=== PATIENT | female | born 1980 | race Caucasian/White ===

== ENCOUNTER 2016-12-23 21:33 | Inpatient (IN) | payer OTHER ==
[~2016-12-23] VITALS: Ht 170.2 cm; Wt 61.3 kg
[2016-12-23 22:14] LABS: POINT-OF-CARE METER ID UU13113800
[2016-12-23 22:41] LABS: HEMATOCRIT 38.9 % (36.0-46.0); MCH 28.1 PG (29.0-34.0); MCHC 31.9 G/DL (30.0-36.0); MCV 88.2 FL (83-99); MEAN PLAT.VOLUME 11.1 uM^3 (9.5-12.4); PLATELET COUNT 225 K/uL (156-360); RBC DIS.WIDTH-CV 14.3 % (11.8-14.6); RBC DIS.WIDTH-SD 46.5 % (39-53); RED BLOOD COUNT 4.41 M/uL (3.80-5.20)
[2016-12-23 22:51] LABS: CHLORIDE 105 mEq/L (99-109); POTASSIUM 3.8 mEq/L (3.7-5.4); SODIUM 136 mEq/L (136-147)
[2016-12-23 22:53] LABS: GLUCOSE 135 mg/dL (70-99)
[2016-12-23 22:54] LABS: ANION GAP 9 MEQ/L (2-14)
[2016-12-23 22:55] LABS: TOTAL BILIRUBIN 0.7 mg/dL (0.0-1.0)
[2016-12-23 22:57] LABS: ALKALINE PHOSPHATASE 57 IU/L (3-129); GFR ESTIMATE (CALCULATED) > 59 mL/min/
[2016-12-23 22:58] LABS: UREA NITROGEN (BUN) 14 mg/dL (9-23)
[2016-12-23 23:00] LABS: LIPASE 6 U/L (1.0-51.0)
[2016-12-23 23:09] LABS: QUANTITATIVE HCG < 4.0 MIU/ML
[2016-12-24] MEDS ORDERED: METHADONE 22 MG/1 ML PO (01:52)
[2016-12-24 02:50] LABS: BASE EXCESS 1.5 mEq/L (-3 to +3); BICARBONATE 25.9 mEq/L (22-26); CARBOXY HGB 3.3 % (0-5); METHEMOGLOBIN 1.1 % (0-1.5); PCO2 39 mm Hg (35-45); PO2 69 mm Hg (80-100); SITE LB; pH 7.43 (7.35-7.45)
[2016-12-24 02:51] LABS: COMMENTS - BLOOD GASES C+; MODE RA; TOTAL RESP RATE 20 resp/min
[2016-12-24 05:45] LABS: BILIRUBIN NEGATIVE; BLOOD NEGATIVE; COLOR YELLOW ((YELLOW)); GLUCOSE (STRIP) NEGATIVE; KETONES 5; LEUKOCYTES NEGATIVE; NITRITE NEGATIVE; PROTEIN (STRIP) NEGATIVE; SPECIFIC GRAVITY 1.036 (1.000-1.030); UROBILINOGEN 0.2 MG/DL (0.2-1.0)
[2016-12-24 05:51] LABS: ADD MIUA? NO; UCUL ADDED? NO
[2016-12-24 07:21] VITALS: BP 97/52
[2016-12-24 08:12] LABS: INTERNAL CONTROL VALID? YES
[2016-12-24 11:07] LABS: EOSINOPHIL (%) 1.6 % (0-5); EOSINOPHIL COUNT 0.2 K/uL (0-0.3); HEMATOCRIT 35.5 % (36.0-46.0); IMMATURE GRANULOCYTE (%) 0.5 % (0.0-0.7); IMMATURE GRANULOCYTE COUNT 0.1 K/uL; INSTRUMENT ABS NEUTROPHIL CT 8.5 K/uL; LYMPHOCYTE COUNT 2.1 K/uL (1.0-2.8); MCH 28.6 PG (29.0-34.0); MCHC 32.4 G/DL (30.0-36.0); MCV 88.3 FL (83-99); MEAN PLAT.VOLUME 11.4 uM^3 (9.5-12.4); MONOCYTE (%) 5.4 % (3-12); MONOCYTE COUNT 0.6 K/uL (0-0.8); NEUTROPHIL (%) 73.7 % (45-76); NEUTROPHIL COUNT 8.5 K/uL (1.8-6.4); PLATELET COUNT 235 K/uL (156-360); RBC DIS.WIDTH-CV 14.5 % (11.8-14.6); RBC DIS.WIDTH-SD 46.6 % (39-53); RED BLOOD COUNT 4.02 M/uL (3.80-5.20); WHITE BLOOD COUNT 11.6 K/uL (4.1-10.2)
[2016-12-24 11:21] LABS: ANION GAP 8 MEQ/L (2-14); CHLORIDE 102 MEQ/L (99-109); GFR ESTIMATE (CALCULATED) > 59 mL/min/; POTASSIUM 3.8 MEQ/L (3.7-5.4); SAMPLE HEMOLYSIS CHECK 0; SAMPLE ICTERIC CHECK 0; SAMPLE LIPEMIA CHECK 0; SODIUM 138 MEQ/L (136-147); UREA NITROGEN (BUN) 10 mg/dL (9-23)
[2016-12-24 11:27] LABS: GLUCOSE 77 mg/dL (70-99)
[2016-12-25] VITALS: BP 91/55
[2016-12-25 02:41] LABS: INFLUENZA A VIRAL ANTIGEN NEGATIVE; INFLUENZA B VIRAL ANTIGEN NEGATIVE
[2016-12-25 07:43] VITALS: BP 101/58
[2016-12-25 07:53] LABS: ANION GAP 8 MEQ/L (2-14); CHLORIDE 103 MEQ/L (99-109); GFR ESTIMATE (CALCULATED) > 59 mL/min/; GLUCOSE 77 mg/dL (70-99); POTASSIUM 4.1 MEQ/L (3.7-5.4); SAMPLE HEMOLYSIS CHECK 0; SAMPLE ICTERIC CHECK 0; SAMPLE LIPEMIA CHECK 0; SODIUM 140 MEQ/L (136-147); UREA NITROGEN (BUN) 11 mg/dL (9-23)
[2016-12-25 08:08] LABS: BASOPHIL COUNT 0.1 K/uL (0-0.1); EOSINOPHIL (%) 7.8 % (0-5); EOSINOPHIL COUNT 0.5 K/uL (0-0.3); HEMATOCRIT 35.5 % (36.0-46.0); IMMATURE GRANULOCYTE (%) 0.5 % (0.0-0.7); INSTRUMENT ABS NEUTROPHIL CT 2.4 K/uL; LYMPHOCYTE COUNT 3.2 K/uL (1.0-2.8); MCH 29.1 PG (29.0-34.0); MCHC 32.1 G/DL (30.0-36.0); MCV 90.6 FL (83-99); MONOCYTE (%) 5.9 % (3-12); MONOCYTE COUNT 0.4 K/uL (0-0.8); NEUTROPHIL (%) 36.6 % (45-76); NEUTROPHIL COUNT 2.4 K/uL (1.8-6.4); PLATELET COUNT 200 K/uL (156-360); RBC DIS.WIDTH-CV 14.3 % (11.8-14.6); RBC DIS.WIDTH-SD 47.4 % (39-53); RED BLOOD COUNT 3.92 M/uL (3.80-5.20)
[2016-12-25 08:22] LABS: WHITE BLOOD COUNT 6.6 K/uL (4.1-10.2)
[2016-12-25 08:23] LABS: INTERNAL CONTROL VALID? YES
[2016-12-25 10:03] LABS: HIV INDEX 0.08; HIV-1/2 AB/AG COMBO Nonreactive
[2016-12-25 15:13] VITALS: BP 113/67
[2016-12-26 00:16] VITALS: BP 100/52
[2016-12-26 07:49] VITALS: BP 119/80
[2016-12-26 08:38] LABS: MCH 29.4 PG (29.0-34.0); MCHC 32.5 G/DL (30.0-36.0); MCV 90.5 FL (83-99); MEAN PLAT.VOLUME 11.2 uM^3 (9.5-12.4); PLATELET COUNT 200 K/uL (156-360); RBC DIS.WIDTH-CV 14.2 % (11.8-14.6); RBC DIS.WIDTH-SD 46.8 % (39-53); RED BLOOD COUNT 3.98 M/uL (3.80-5.20); WHITE BLOOD COUNT 6.5 K/uL (4.1-10.2)
[2016-12-26 09:07] LABS: ANION GAP 9 MEQ/L (2-14); CHLORIDE 103 MEQ/L (99-109); GFR ESTIMATE (CALCULATED) > 59 mL/min/; GLUCOSE 88 mg/dL (70-99); MAGNESIUM 1.9 mg/dl (1.3-2.7); POTASSIUM 3.5 MEQ/L (3.7-5.4); SAMPLE HEMOLYSIS CHECK 0; SAMPLE ICTERIC CHECK 0; SAMPLE LIPEMIA CHECK 0; SODIUM 141 MEQ/L (136-147); UREA NITROGEN (BUN) 9 mg/dL (9-23)
[2016-12-26] MEDS ORDERED: NICOTINE PATCH1 EAC2 TD (13:33)
[2016-12-26] MEDS ORDERED: LEVOFLOXACIN750 MG PO (13:33)
[2016-12-26] MEDS ORDERED: MUCINEX600 MG PO (13:33)
[2016-12-26] MEDS ORDERED: PREDNISONE5 M1 PO (13:33)
[2016-12-26] MEDS ORDERED: VENTOLIN HFA18 GM IH (13:33)
[2016-12-26] MEDS ORDERED: HYDROXYZINE PAM50 MG PO (14:30)
[2016-12-26] MEDS ORDERED: ZOFRAN4 MG PO (14:30)
== END 2016-12-26 16:37 | disposition home or self-care (01) | DRG 194 ==
LOC: EME 21:33 → 5EAST 12-24 01:48 → EDBD 12-24 01:48 → EDOF 12-24 01:48 → 5EAST 12-24 03:46
PROVIDERS: Hospitalist; Internal Medicine; Internal Medicine Pulmonary Disease; Physician Assistant Medical
PROC: 0W993ZZ Drainage of Right Pleural Cavity, Percutaneous Approach (ICD-10-PCS; principal; 2016-12-25)
DX: J18.9 Pneumonia, unspecified organism (principal); J90 Pleural effusion, not elsewhere classified; F11.23 Opioid dependence with withdrawal; F17.200 Nicotine dependence, unspecified, uncomplicated; R91.8 Other nonspecific abnormal finding of lung field
CPT/HCPCS: 36600; 71010; 71020; 71260; 74177; 80048; 80053; 81003; 82803; 82948; 83605; 83690; 83735; 84702; 85025; 85027; 86703; 87040; 87070; 87075; 87205; 87449; 87493; 87502; 94640; 94640 76; 94667; 94668; 94799; 99202; 99281; 99285; J1650; J1956; J2060; J2270; J2405; J2765; J7030; J7120; Q0177; S0028

== ENCOUNTER 2017-01-01 04:13 | Emergency (ER) | payer OTHER ==
[~2017-01-01] VITALS: Ht 170.2 cm; Wt 57.7 kg
[~2017-01-01 04:13] MED LIST: HYDROXYZINE PAM50 MG PO; LEVOFLOXACIN750 MG PO; METHADONE 22 MG/1 ML PO; MUCINEX600 MG PO; NICOTINE PATCH1 EAC2 TD; PREDNISONE5 M1 PO; VENTOLIN HFA18 GM IH; ZOFRAN4 MG PO
[2017-01-01 05:30] LABS: CHLORIDE 104 mEq/L (99-109); POTASSIUM 3.3 mEq/L (3.7-5.4); SODIUM 139 mEq/L (136-147)
[2017-01-01 05:32] LABS: GLUCOSE 119 mg/dL (70-99)
[2017-01-01 05:33] LABS: ANION GAP 11 MEQ/L (2-14)
[2017-01-01 05:35] LABS: SERUM ETHYL ALCOHOL < 10 mg/dL
[2017-01-01 05:36] LABS: GFR ESTIMATE (CALCULATED) > 59 mL/min/
[2017-01-01 05:39] LABS: LIPASE 10 U/L (1.0-51.0)
[2017-01-01 05:44] LABS: UREA NITROGEN (BUN) 22 mg/dL (9-23)
[2017-01-01 05:47] LABS: QUANTITATIVE HCG < 4.0 MIU/ML
[2017-01-01 06:04] LABS: BASOPHIL COUNT 0.1 K/uL (0-0.1); EOSINOPHIL (%) 0.9 % (0-5); EOSINOPHIL COUNT 0.1 K/uL (0-0.3); HEMATOCRIT 37.2 % (36.0-46.0); IMMATURE GRANULOCYTE (%) 0.6 % (0.0-0.7); IMMATURE GRANULOCYTE COUNT 0.1 K/uL; INSTRUMENT ABS NEUTROPHIL CT 11.2 K/uL; LYMPHOCYTE COUNT 3.2 K/uL (1.0-2.8); MCH 28.5 PG (29.0-34.0); MCHC 33.1 G/DL (30.0-36.0); MCV 86.1 FL (83-99); MEAN PLAT.VOLUME 10.5 uM^3 (9.5-12.4); MONOCYTE (%) 6.8 % (3-12); MONOCYTE COUNT 1.1 K/uL (0-0.8); NEUTROPHIL (%) 71.3 % (45-76); NEUTROPHIL COUNT 11.2 K/uL (1.8-6.4); PLATELET COUNT 265 K/uL (156-360); RBC DIS.WIDTH-SD 43.7 % (39-53); RED BLOOD COUNT 4.32 M/uL (3.80-5.20); WHITE BLOOD COUNT 15.7 K/uL (4.1-10.2)
[2017-01-01] MEDS ORDERED: MOTRIN600 MG PO (06:31)
[2017-01-01] MEDS ORDERED: PERCOCET 10/1 TABLET PO (06:31)
[2017-01-01] MEDS ORDERED: ZOFRAN ODT4 MG PO (06:38)
[2017-01-01 08:25] VITALS: BP 136/80
== END 2017-01-01 08:27 | disposition home or self-care (01) ==
LOC: EME 04:13
PROVIDERS: Emergency Medicine
PROC: 3E0234Z Introduction of Serum, Toxoid and Vaccine into Muscle, Percutaneous Approach (ICD-10-PCS; principal; 2017-01-01)
DX: S46.911A Strain of unspecified muscle, fascia and tendon at shoulder and upper arm level, right arm, initial encounter (principal); S06.0X0A Concussion without loss of consciousness, initial encounter; S40.211A Abrasion of right shoulder, initial encounter; S00.03XA Contusion of scalp, initial encounter; M54.2 Cervicalgia; W17.89XA Other fall from one level to another, initial encounter; Z23 Encounter for immunization
CPT/HCPCS: 70450; 71010; 73030; 80048; 81003; 83690; 84702; 85025; 86900; 86901; 99281; 99285; G0480; J1885; J2270; J2405; J7030

== ENCOUNTER 2017-01-30 11:41 | Emergency (ER) | payer OTHER ==
[~2017-01-30] VITALS: Ht 170.2 cm; Wt 67.2 kg
[~2017-01-30 11:41] MED LIST changes: +MOTRIN600 MG PO; +PERCOCET 10/1 TABLET PO; +ZOFRAN ODT4 MG PO
[2017-01-30 13:24] LABS: BASOPHIL COUNT 0.1 K/uL (0-0.1); EOSINOPHIL (%) 0.2 % (0-5); HEMATOCRIT 37.9 % (36.0-46.0); IMMATURE GRANULOCYTE (%) 0.7 % (0.0-0.7); IMMATURE GRANULOCYTE COUNT 0.1 K/uL; INSTRUMENT ABS NEUTROPHIL CT 11.9 K/uL; LYMPHOCYTE COUNT 1.3 K/uL (1.0-2.8); MCH 28.2 PG (29.0-34.0); MCHC 31.1 G/DL (30.0-36.0); MEAN PLAT.VOLUME 10.5 uM^3 (9.5-12.4); MONOCYTE (%) 2.4 % (3-12); MONOCYTE COUNT 0.3 K/uL (0-0.8); NEUTROPHIL (%) 86.9 % (45-76); NEUTROPHIL COUNT 11.9 K/uL (1.8-6.4); PLATELET COUNT 293 K/uL (156-360); RBC DIS.WIDTH-CV 15.1 % (11.8-14.6); RBC DIS.WIDTH-SD 49.9 % (39-53); RED BLOOD COUNT 4.18 M/uL (3.80-5.20); WHITE BLOOD COUNT 13.7 K/uL (4.1-10.2)
[2017-01-30 13:26] LABS: MCV 90.7 FL (83-99)
[2017-01-30 13:31] LABS: CHLORIDE 106 mEq/L (99-109); POTASSIUM 3.8 mEq/L (3.7-5.4)
[2017-01-30 13:32] LABS: SODIUM 138 mEq/L (136-147)
[2017-01-30 13:34] LABS: GLUCOSE 124 mg/dL (70-99)
[2017-01-30 13:35] LABS: ANION GAP 6 MEQ/L (2-14)
[2017-01-30 13:36] LABS: TOTAL BILIRUBIN 0.2 mg/dL (0.0-1.0)
[2017-01-30 13:37] LABS: ALKALINE PHOSPHATASE 47 IU/L (3-129); GFR ESTIMATE (CALCULATED) > 59 mL/min/
[2017-01-30 13:39] LABS: UREA NITROGEN (BUN) 11 mg/dL (9-23)
[2017-01-30 13:41] LABS: LIPASE 25 U/L (1.0-51.0)
[2017-01-30] MEDS ORDERED: ZOFRAN ODT4 MG PO (15:07)
[2017-01-30 15:19] VITALS: BP 130/80
== END 2017-01-30 15:35 | disposition home or self-care (01) ==
LOC: EME 11:41
PROVIDERS: Emergency Medicine
DX: R11.2 Nausea with vomiting, unspecified (principal); R19.7 Diarrhea, unspecified; Z88.2 Allergy status to sulfonamides; Z88.0 Allergy status to penicillin; R91.8 Other nonspecific abnormal finding of lung field
CPT/HCPCS: 74022; 80053; 83690; 85025; 99281; 99283; J0780; J2405; J7030